=== PATIENT | female | born 1985 | race Caucasian/White ===

== ENCOUNTER 2019-04-25 02:08 | Inpatient (IN) | payer OTHER ==
[~2019-04-25] VITALS: Ht 170.2 cm; Wt 77.3 kg
[~2019-04-25 02:08] MED LIST: DOCU240C31 PO; IBUP-1222 PO; OXYC-302 PO
[2019-04-25 02:30] VITALS: BP 112/65
[2019-04-25] MEDS ORDERED: OXYTOCIN 30U/ 0.9% NaCL 500ML 500 ML IV ONE (05:15)
[2019-04-25] MEDS: LACTATED RINGERS 1,000 ML IV SCH ×6 (05:15→23:29)
[2019-04-25] MEDS: D5%-LACTATED RINGERS 1,000 ML IV SCH ×3 (05:15→19:56)
[2019-04-25] MEDS ORDERED: FENTANYL PF 100 MCG/2ML IVPush PRN (05:30)
[2019-04-25] MEDS ORDERED: TERBUTALINE 1 MG/ML, 1ML IVPush PRN (05:30)
[2019-04-25] MEDS ORDERED: SODIUM CITRATE/CITRIC ACID 15 ML UDC PO PRN (05:30)
[2019-04-25] MEDS ORDERED: FENTANYL PF 100 MCG/2ML IV PRN (05:30)
[2019-04-25] MEDS ORDERED: ONDANSETRON 2MG/ML, 2ML IVPush PRN ×2 (05:30→08:30)
[2019-04-25] MEDS ORDERED: SODIUM CHLORIDE FLUSH 10ML SYR IVF PRN (05:30)
[2019-04-25] MEDS ORDERED: METOCLOPRAMIDE 5 MG/ML, 2ML IVPush PRN (05:30)
[2019-04-25] MEDS ORDERED: LIDOCAINE 1%, 20ML ONE (06:12)
[2019-04-25] MEDS ORDERED: NEWBORN KIT ONE (06:12)
[2019-04-25] MEDS ORDERED: OXYTOCIN 30U/ 0.9% NaCL 500ML 500 ML ONE ×2 (06:13→13:27)
[2019-04-25] MEDS ORDERED: MISOPROSTOL 200 MCG TABLET ONE (06:13)
[2019-04-25] MEDS ORDERED: LACTATED RINGERS 1,000 ML IV SCH (06:37)
[2019-04-25] MEDS ORDERED: FENTANYL/BUPIV./NS/PF 250 ML EPIDCONT SCH ×2 (06:37→08:03)
[2019-04-25] MEDS ORDERED: EPHEDRINE 50 MG/ML, 1ML IVPush PRN ×2 (07:00→08:30)
[2019-04-25] MEDS ORDERED: LACTATED RINGERS 1,000 ML IVBOLUS PRN (07:00)
[2019-04-25] MEDS ORDERED: BUPIVACAINE 0.25% ONE (07:14)
[2019-04-25] MEDS ORDERED: FENTANYL PF 100 MCG/2ML ONE (07:14)
[2019-04-25 07:30] LABS: MEAN CORPUSCULAR HEMOGLOBIN 30.4 pg (27.0-34.8); MEAN CORPUSCULAR VOLUME 92.1 fL (80-100); MEAN PLATELET VOLUME 11.5 fL (7.4-10.4); PLATELET COUNT 126 x10^3/uL (130-400); RED BLOOD COUNT 4.22 x10^6/uL (3.82-5.3); RED CELL DISTRIBUTION WIDTH 14.1 % (9.6-15.2)
[2019-04-25 07:31] LABS: BASOPHILS # (AUTO) 0.03 x10^3/uL (0-0.1); BASOPHILS % (AUTO) 0 % (0-1); EOSINOPHILS # (AUTO) 0.01 x10^3/uL (0-0.4); EOSINOPHILS % (AUTO) 0 % (1-7); LYMPHOCYTES # (AUTO) 0.98 x10^3/uL (1-3.4); LYMPHOCYTES % (AUTO) 8 % (22-44); MD SCAN; MONOCYTES # (AUTO) 0.28 x10^3/uL (0.2-0.8); MONOCYTES % (AUTO) 2 % (2-9); NEUTROPHILS # (AUTO) 10.74 x10^3/uL (1.8-6.8); NEUTROPHILS % (AUTO) 89 % (42-75)
[2019-04-25] MEDS ORDERED: OXYTOCIN 30U/ 0.9% NaCL 500ML 500 ML IV PRN (10:03)
[2019-04-25] MEDS ORDERED: IBUPROFEN 600 MG TABLET ONE (12:40)
[2019-04-25] MEDS ORDERED: OXYcodone/APAP 5/325MG TABLET ONE (12:41)
[2019-04-25] MEDS: IBUPROFEN 600 MG TABLET PO PRN ×2 (12:46→21:19)
[2019-04-25] MEDS: OXYcodone/APAP 5/325MG TABLET PO PRN (12:46)
[2019-04-25] MEDS ORDERED: ONDANSETRON 2MG/ML, 2ML IV PRN (13:00)
[2019-04-25] MEDS ORDERED: METHYLERGONOVINE 0.2 MG/ML IM PRN (13:00)
[2019-04-25] MEDS ORDERED: ACETAMINOPHEN 325 MG TABLET PO PRN (13:00)
[2019-04-25] MEDS ORDERED: MISOPROSTOL 200 MCG TABLET PR PRN (13:00)
[2019-04-25] MEDS ORDERED: CARBOPROST TROMETHAMINE 250 MCG/ML, 1ML IM PRN (13:00)
[2019-04-25] MEDS: OXYTOCIN 30U/ 0.9% NaCL 500ML 500 ML IV SCH ×2 (13:35→19:57)
[2019-04-25 14:30] VITALS: BP 102/61
[2019-04-25 19:50] VITALS: BP 106/66
[2019-04-25 20:44] LABS: BASOPHILS # (AUTO) 0.05 x10^3/uL (0-0.1); BASOPHILS % (AUTO) 0 % (0-1); EOSINOPHILS # (AUTO) 0.03 x10^3/uL (0-0.4); EOSINOPHILS % (AUTO) 0 % (1-7); LYMPHOCYTES # (AUTO) 1.39 x10^3/uL (1-3.4); LYMPHOCYTES % (AUTO) 11 % (22-44); MD NO; MEAN CORPUSCULAR HEMOGLOBIN 31.6 pg (27.0-34.8); MEAN CORPUSCULAR HGB CONC 33.7 g/dL (32.4-35.8); MEAN CORPUSCULAR VOLUME 93.8 fL (80-100); MEAN PLATELET VOLUME 11.5 fL (7.4-10.4); MONOCYTES # (AUTO) 0.93 x10^3/uL (0.2-0.8); MONOCYTES % (AUTO) 7 % (2-9); NEUTROPHILS # (AUTO) 10.13 x10^3/uL (1.8-6.8); NEUTROPHILS % (AUTO) 81 % (42-75); PLATELET COUNT 135 x10^3/uL (130-400); RED BLOOD COUNT 3.74 x10^6/uL (3.82-5.3); RED CELL DISTRIBUTION WIDTH 14.1 % (9.6-15.2)
[2019-04-26 01:30] VITALS: BP 113/69
[2019-04-26] MEDS: OXYcodone/APAP 5/325MG TABLET PO PRN (02:30)
[2019-04-26] MEDS: LACTATED RINGERS 1,000 ML IV SCH (05:17)
[2019-04-26] MEDS: D5%-LACTATED RINGERS 1,000 ML IV SCH (05:17)
[2019-04-26] MEDS: IBUPROFEN 600 MG TABLET PO PRN ×3 (05:53→19:11)
[2019-04-26 05:57] VITALS: BP 109/65
[2019-04-26 08:15] VITALS: BP 102/64
[2019-04-26] MEDS: OXYTOCIN 30U/ 0.9% NaCL 500ML 500 ML IV SCH ×2 (08:41→18:41)
[2019-04-26] MEDS: DOCUSATE 100 MG CAPSULE PO PRN (08:49)
[2019-04-26] MEDS: PRENATAL VIT/IRON/FA 1 EACH TABLET PO SCH (10:38)
[2019-04-26 13:00] VITALS: BP 107/73
[2019-04-26 19:50] VITALS: BP 110/66
[2019-04-27] MEDS: IBUPROFEN 600 MG TABLET PO PRN ×2 (02:25→09:48)
[2019-04-27] MEDS: OXYTOCIN 30U/ 0.9% NaCL 500ML 500 ML IV SCH ×2 (04:41→14:41)
[2019-04-27 07:40] VITALS: BP 114/72
[2019-04-27] MEDS: PRENATAL VIT/IRON/FA 1 EACH TABLET PO SCH (09:00)
[2019-04-27] MEDS: DOCUSATE 100 MG CAPSULE PO PRN (09:48)
[2019-04-27] MEDS ORDERED: IBUP-1222 PO (10:04)
== END 2019-04-27 15:51 | disposition home or self-care (01) | DRG 807 ==
LOC: LDOP 02:08 → LDIP 05:19 → 2NW 14:28
PROVIDERS: ADMIT Obstetrics & Gynecology; ATTEND Obstetrics & Gynecology
PROC: 10E0XZZ Delivery of Products of Conception, External Approach (ICD-10-PCS; principal; 2019-04-25)
PROC: 0KQM0ZZ Repair Perineum Muscle, Open Approach (ICD-10-PCS; 2019-04-25)
PROC: 10907ZC Drainage of Amniotic Fluid, Therapeutic from Products of Conception, Via Natural or Artificial Opening (ICD-10-PCS; 2019-04-25)
PROC: 3E0R3BZ Introduction of Anesthetic Agent into Spinal Canal, Percutaneous Approach (ICD-10-PCS; 2019-04-25)
PROC: 00HU33Z Insertion of Infusion Device into Spinal Canal, Percutaneous Approach (ICD-10-PCS; 2019-04-25)
DX: O99.284 Endocrine, nutritional and metabolic diseases complicating childbirth (principal); Z37.0 Single live birth; E03.9 Hypothyroidism, unspecified; J45.909 Unspecified asthma, uncomplicated; O70.1 Second degree perineal laceration during delivery; M51.27 Other intervertebral disc displacement, lumbosacral region; O99.89 Other specified diseases and conditions complicating pregnancy, childbirth and the puerperium; O99.52 Diseases of the respiratory system complicating childbirth; Z3A.38 38 weeks gestation of pregnancy; Z88.2 Allergy status to sulfonamides; Z80.41 Family history of malignant neoplasm of ovary; Z80.3 Family history of malignant neoplasm of breast; Z82.49 Family history of ischemic heart disease and other diseases of the circulatory system
CPT/HCPCS: 36415; 85025; 86850; 86900; G0378; J2590; J3010; J7120